=== PATIENT | male | born 1950 | race Caucasian/White ===

== ENCOUNTER → 2019-04-25 07:57 | Outpatient (CLI) | payer MEDICARE, SELFPAY ==
--- NOTE | 2019-04-25 07:58 | DI.US.S_ITS ---
PROCEDURE: US ABD AORTA ANEURYSM SCREEN INDICATIONS: SCREENING TECHNIQUE: Real time scanning was performed of the aorta and iliac arteries, with image documentation. COMPARISON: None. FINDINGS: Aorta: Proximal aortic diameter measures 2.0 cm. Mid-aorta measures 1.7 cm. Distal aortic diameter is 1.7 cm. Iliac arteries: Right common iliac artery measures 1.0 cm. Left common iliac artery measures 0.9 cm. IMPRESSION: Negative for abdominal aortic or iliac artery aneurysm. Dictated by: Ana Benítez M.D. on 04/25/2019 at 9:31 Approved by: Ana Benítez M.D. on 04/25/2019 at 9:32
[2019-04-25 09:02] LABS: Cholesterol 177 mg/dL (140-199); HDL Cholesterol 53 mg/dL (40-60); LDL Cholesterol Calculated 110 mg/dL (<100); Triglycerides 72 mg/dL (35-150)
[2019-04-25 09:34] LABS: Prostate Specific Antigen Scrn 1.19 ng/mL (0.1-4.0)
[2019-04-25 09:46] LABS: Vitamin D 25 Hydroxy (D3) 38.4 ng/mL (30.0-100.0)
== END ==
PROVIDERS: PCP Family Medicine; Visit Provider Student in an Organized Health Care Education/Training Program
DX: Z13.6 Encounter for screening for cardiovascular disorders (principal); Z12.5 Encounter for screening for malignant neoplasm of prostate; E78.00 Pure hypercholesterolemia, unspecified; E55.9 Vitamin D deficiency, unspecified; Z87.891 Personal history of nicotine dependence
CPT/HCPCS: 36415; 76706; 80061; 82306; G0103